=== PATIENT | female | born 1985 | race Hispanic/Latino ===

== ENCOUNTER 2020-08-29 14:08 | Emergency (ER) | payer MEDICARE ==
[~2020-08-29] VITALS: Ht 157.5 cm; Wt 117.9 kg
[2020-08-29 14:51] VITALS: BP 110/56
[2020-08-29 15:54] VITALS: BP 108/63
[2020-08-29 16:25] VITALS: BP 137/80
== END 2020-08-29 17:00 | disposition home or self-care (01) ==
LOC: EDH 14:08
DX: H11.32 Conjunctival hemorrhage, left eye (principal); E66.9 Obesity, unspecified; Z88.7 Allergy status to serum and vaccine; Z88.1 Allergy status to other antibiotic agents
CPT/HCPCS: 99281

== ENCOUNTER 2021-03-10 17:24 | Emergency (ER) | payer MEDICARE ==
[~2021-03-10] VITALS: Ht 157.5 cm; Wt 122.5 kg
[2021-03-10 18:12] LABS: ABG BASE EXCESS -1.5 mmol/L (-2.0-3.0); ABG HCO3 22.2 mmol/L (21.0-28.0); ABG OXYGEN SATURATION 97.3 % (95.0-99.0); ABG PCO2 35 mmHg (32-45)
[2021-03-10 18:37] LABS: BASOPHILS % (AUTO) 0.6 % (0.0-5.0); EOSINOPHILS % (AUTO) 1.9 % (0.0-8.0); HEMATOCRIT 40.8 % (36-48); LYMPHOCYTES % (AUTO) 14.3 % (21.0-51.0); MEAN CORPUSCULAR HEMOGLOBIN 29.6 pg (27.0-33.0); MEAN CORPUSCULAR HGB CONC 31.9 g/dL (32.0-36.0); MEAN CORPUSCULAR VOLUME 92.9 fL (79-99); MONOCYTES % (AUTO) 7.9 % (3.0-13.0); NEUTROPHILS % (AUTO) 74.6 % (40.0-77.0); PLATELET COUNT (AUTO) 182 K/uL (130-400); RED BLOOD CELL COUNT(AUTO) 4.39 MIL/uL (4.00-5.50); RED CELL DISTRIBUTION WIDTH 12.3 % (11.0-15.5); WHITE BLOOD COUNT (AUTO) 8.8 K/uL (4.8-10.8)
[2021-03-10 18:44] LABS: APPEARANCE,URINE Cloudy (CLEAR); BILIRUBIN,URINE Negative (NEGATIVE); COLOR,URINE Yellow (YELLOW); GLUCOSE, URINE (UA) Negative (NEGATIVE); KETONES,URINE Negative (NEGATIVE); LEUKOCYTE ESTERASE ,URINE Trace (NEGATIVE); NITRATE,URINE Negative (NEGATIVE); OCCULT BLOOD,URINE Negative (NEGATIVE); PROTEIN,URINE Negative (NEGATIVE)
[2021-03-10 18:48] LABS: CREATININE 0.7 mg/dL (0.5-1.5); POTASSIUM 4.6 mmol/L (3.5-5.1)
[2021-03-10 18:56] LABS: ALBUMIN 3.5 g/dL (3.5-5.0); BILIRUBIN,TOTAL 0.5 mg/dL (0.2-1.0); CRP QUANTITATIVE 2.1 mg/L (0.00-9.0); TOTAL PROTEIN, SERUM 6.9 g/dL (6.0-8.3)
[2021-03-10 18:57] LABS: HCG,QUAL RESULT NEGATIVE (NEGATIVE)
[2021-03-10 19:13] LABS: B-TYPE NATRIURETIC PEPTIDE 16 pg/mL (0-100)
[2021-03-10 19:18] LABS: BACTERIA,URINE Few /HPF (None Seen); MUCUS,URINE Few LPF (None Seen); RBC,URINE 0-1 /HPF (0-1); SQUAMOUS EPITHELIAL CELL,UR Moderate /HPF (0-2)
[2021-03-10 19:49] LABS: ERYTHROCYTE SEDIMENTATION RATE 4 MM/HR (0-20)
[2021-03-10 20:48] VITALS: BP 115/64
== END 2021-03-10 20:52 | disposition home or self-care (01) ==
LOC: EDH 17:24
DX: F41.9 Anxiety disorder, unspecified (principal); R00.2 Palpitations; R53.1 Weakness; R60.0 Localized edema; J44.9 Chronic obstructive pulmonary disease, unspecified; M32.9 Systemic lupus erythematosus, unspecified; F32.A Depression, unspecified; E66.9 Obesity, unspecified; Z68.42 Body mass index [BMI] 45.0-49.9, adult; Z88.1 Allergy status to other antibiotic agents; Z90.49 Acquired absence of other specified parts of digestive tract
CPT/HCPCS: 36415; 36600; 71045; 80053; 81001; 81025; 82550; 82803; 83735; 83880; 84484; 85025; 85651; 86140; 93005

== ENCOUNTER → 2021-03-26 | Emergency (ER) | payer MEDICARE ==
[~2021-03-26] VITALS: Ht 157.5 cm; Wt 118.8 kg
[2021-03-26 13:58] VITALS: BP 142/93
== END ==
LOC: EDH 13:55
DX: R11.0 Nausea (principal); Z53.21 Procedure and treatment not carried out due to patient leaving prior to being seen by health care provider
CPT/HCPCS: 87635; 87804 ×2; C9803

== ENCOUNTER 2021-04-22 17:34 | Emergency (ER) | payer MEDICARE ==
[~2021-04-22] VITALS: Ht 157.5 cm; Wt 114.8 kg
[2021-04-22] MEDS ORDERED: ALBUTEROL INHALER 90MCG/INH IH PRN (18:00)
[2021-04-22 18:24] LABS: BASOPHILS % (AUTO) 0.6 % (0.0-5.0); EOSINOPHILS % (AUTO) 2.5 % (0.0-8.0); HEMATOCRIT 40.5 % (36-48); LYMPHOCYTES % (AUTO) 19.9 % (21.0-51.0); MEAN CORPUSCULAR HEMOGLOBIN 30.4 pg (27.0-33.0); MEAN CORPUSCULAR HGB CONC 33.8 g/dL (32.0-36.0); MEAN CORPUSCULAR VOLUME 89.8 fL (79-99); MONOCYTES % (AUTO) 10.6 % (3.0-13.0); NEUTROPHILS % (AUTO) 64.8 % (40.0-77.0); PLATELET COUNT (AUTO) 174 K/uL (130-400); RED BLOOD CELL COUNT(AUTO) 4.51 MIL/uL (4.00-5.50); RED CELL DISTRIBUTION WIDTH 12.2 % (11.0-15.5); WHITE BLOOD COUNT (AUTO) 7.9 K/uL (4.8-10.8)
[2021-04-22 18:39] LABS: CREATININE 0.7 mg/dL (0.5-1.5); POTASSIUM 3.4 mmol/L (3.5-5.1)
[2021-04-22 18:48] LABS: ALBUMIN 3.6 g/dL (3.5-5.0); BILIRUBIN,TOTAL 0.2 mg/dL (0.2-1.0); CRP QUANTITATIVE 18.4 mg/L (0.00-9.0); TOTAL PROTEIN, SERUM 7.1 g/dL (6.0-8.3)
[2021-04-22] MEDS ORDERED: ACETAMINOPHEN WITH CODEINE 1 TAB TAB PO ONE (19:00)
[2021-04-22] MEDS ORDERED: DEXAMETHASONE SOD PHOSPHATE 4 MG/ML 1ML VIAL IVP ONE (19:00)
[2021-04-22] MEDS ORDERED: 0.9%NACL 1000ML 1,000 ML IV ONE (19:00)
[2021-04-22] MEDS ORDERED: AMOX/CLAV 875/125MG TAB PO ONE (19:00)
[2021-04-22] MEDS ORDERED: AZITHROMYCIN 250 MG TABLET PO ONE (19:00)
[2021-04-22 19:10] LABS: ABG BASE EXCESS -0.7 mmol/L (-2.0-3.0); ABG HCO3 23.5 mmol/L (21.0-28.0); ABG OXYGEN SATURATION 95.6 % (95.0-99.0); ABG PCO2 38 mmHg (32-45)
[2021-04-22] MEDS ORDERED: NIRM1TAB PO (19:58)
[2021-04-22] MEDS ORDERED: PRED20TA3 PO (19:58)
[2021-04-22] MEDS ORDERED: AMOX-429 PO (19:58)
[2021-04-22] MEDS ORDERED: D-ME1POW16 PO (19:58)
[2021-04-22 20:20] VITALS: BP 116/67
== END 2021-04-22 20:27 | disposition home or self-care (01) ==
LOC: EDH 17:34
DX: U07.1 COVID-19 (principal); J06.9 Acute upper respiratory infection, unspecified; M32.9 Systemic lupus erythematosus, unspecified; M79.7 Fibromyalgia; E86.0 Dehydration; Z88.1 Allergy status to other antibiotic agents; Z79.52 Long term (current) use of systemic steroids; Z90.49 Acquired absence of other specified parts of digestive tract
CPT/HCPCS: 36415; 36600; 71045; 80053; 82803; 84484; 85025; 86140; 87635; 87804 ×2; 96361; 96374; 99284; C9803; J1100; J7030

== ENCOUNTER 2021-05-02 07:33 | Emergency (ER) | payer MEDICARE ==
[~2021-05-02] VITALS: Ht 157.5 cm; Wt 116.1 kg
[~2021-05-02 07:33] MED LIST: AMOX-429 PO; D-ME1POW16 PO; NIRM1TAB PO; PRED20TA3 PO
[2021-05-02 08:35] LABS: BASOPHILS % (AUTO) 0.6 % (0.0-5.0); EOSINOPHILS % (AUTO) 2.6 % (0.0-8.0); HEMATOCRIT 39.4 % (36-48); LYMPHOCYTES % (AUTO) 23.6 % (21.0-51.0); MEAN CORPUSCULAR HEMOGLOBIN 28.6 pg (27.0-33.0); MEAN CORPUSCULAR HGB CONC 31.5 g/dL (32.0-36.0); MONOCYTES % (AUTO) 8.5 % (3.0-13.0); NEUTROPHILS % (AUTO) 63.9 % (40.0-77.0); PLATELET COUNT (AUTO) 158 K/uL (130-400); RED BLOOD CELL COUNT(AUTO) 4.33 MIL/uL (4.00-5.50); RED CELL DISTRIBUTION WIDTH 12.5 % (11.0-15.5)
[2021-05-02 08:40] LABS: APPEARANCE,URINE CLOUDY (CLEAR); BILIRUBIN,URINE NEGATIVE (NEGATIVE); COLOR,URINE YELLOW (YELLOW); GLUCOSE, URINE (UA) NEGATIVE (NEGATIVE); KETONES,URINE NEGATIVE (NEGATIVE); LEUKOCYTE ESTERASE ,URINE SMALL (NEGATIVE); NITRATE,URINE NEGATIVE (NEGATIVE); OCCULT BLOOD,URINE LARGE (NEGATIVE); PROTEIN,URINE NEGATIVE (NEGATIVE); UROBILINOGEN,URINE 0.2 mg/dL (0.2-1.0)
[2021-05-02 08:43] LABS: CREATININE 0.6 mg/dL (0.5-1.5); POTASSIUM 3.9 mmol/L (3.5-5.1)
[2021-05-02 08:43] LABS: HCG,QUAL RESULT NEGATIVE (NEGATIVE)
[2021-05-02 08:47] LABS: ALBUMIN 3.4 g/dL (3.5-5.0); BILIRUBIN,TOTAL 0.5 mg/dL (0.2-1.0); TOTAL PROTEIN, SERUM 6.5 g/dL (6.0-8.3)
[2021-05-02 08:51] LABS: BACTERIA,URINE Rare /HPF (None Seen); RBC,URINE TNTC /HPF (0-1); SQUAMOUS EPITHELIAL CELL,UR Rare /HPF (0-2); WBC,URINE 0-1 /HPF (0-1)
[2021-05-02] MEDS ORDERED: MORPHINE 4 MG SYG IV ONE (10:00)
[2021-05-02] MEDS ORDERED: ONDANSETRON 4MG INJ IVP ONE (10:00)
[2021-05-02] MEDS ORDERED: 0.9%NACL 1000ML 1,000 ML IV ONE (10:00)
[2021-05-02] MEDS ORDERED: MORPHINE 4 MG SYG ONE (11:55)
[2021-05-02] MEDS ORDERED: MORPHINE 4 MG SYG IV SCH (12:00)
[2021-05-02] MEDS ORDERED: ACET1TAB27 PO (12:13)
[2021-05-02] MEDS ORDERED: MORPHINE 2 MG SYG IVP ONE (12:30)
[2021-05-02] MEDS ORDERED: KETOROLAC 15MG/ML VIAL (15MG/ML) IV ONE (12:30)
[2021-05-02 12:56] VITALS: BP 116/69
== END 2021-05-02 12:59 | disposition home or self-care (01) ==
LOC: EDH 07:33
DX: M79.10 Myalgia, unspecified site (principal); R74.8 Abnormal levels of other serum enzymes; E86.0 Dehydration; J44.9 Chronic obstructive pulmonary disease, unspecified; Z88.1 Allergy status to other antibiotic agents; Z88.4 Allergy status to anesthetic agent; Z90.49 Acquired absence of other specified parts of digestive tract; Z79.1 Long term (current) use of non-steroidal anti-inflammatories (NSAID); Z86.16 Personal history of COVID-19; Z79.52 Long term (current) use of systemic steroids
CPT/HCPCS: 36415; 80053; 81001; 81025; 82550; 85025; 96361; 96374; 96375; 96376; 99284; J1885; J2270 ×2; J2405; J7030

== ENCOUNTER 2021-08-18 12:44 | Emergency (ER) | payer MEDICARE ==
[~2021-08-18] VITALS: Ht 157.5 cm; Wt 119.7 kg
[~2021-08-18 12:44] MED LIST changes: +ACET1TAB97 PO
[2021-08-18] MEDS ORDERED: 0.9%NACL 1000ML 1,000 ML IV ONE (14:00)
[2021-08-18] MEDS ORDERED: ONDANSETRON 4MG INJ IVP ONE (14:00)
[2021-08-18] MEDS ORDERED: ACETAMINOPHEN 500 MG TABLET PO ONE (14:00)
[2021-08-18] MEDS ORDERED: MORPHINE 4 MG SYG IVP ONE (14:00)
[2021-08-18 14:34] LABS: BASOPHILS % (AUTO) 0.6 % (0.0-5.0); EOSINOPHILS % (AUTO) 2.9 % (0.0-8.0); HEMATOCRIT 42.5 % (36-48); LYMPHOCYTES % (AUTO) 22.7 % (21.0-51.0); MEAN CORPUSCULAR HEMOGLOBIN 27.8 pg (27.0-33.0); MEAN CORPUSCULAR HGB CONC 31.8 g/dL (32.0-36.0); MEAN CORPUSCULAR VOLUME 87.6 fL (79-99); MONOCYTES % (AUTO) 7.4 % (3.0-13.0); PLATELET COUNT (AUTO) 171 K/uL (130-400); RED BLOOD CELL COUNT(AUTO) 4.85 MIL/uL (4.00-5.50); RED CELL DISTRIBUTION WIDTH 12.5 % (11.0-15.5); WHITE BLOOD COUNT (AUTO) 7.9 K/uL (4.8-10.8)
[2021-08-18 15:04] LABS: CREATININE 0.7 mg/dL (0.5-1.5); POTASSIUM 3.8 mmol/L (3.5-5.1)
[2021-08-18 15:09] LABS: ALBUMIN 3.8 g/dL (3.5-5.0); BILIRUBIN,TOTAL 0.4 mg/dL (0.2-1.0); TOTAL PROTEIN, SERUM 6.6 g/dL (6.0-8.3)
[2021-08-18 16:08] VITALS: BP 118/74
== END 2021-08-18 16:16 | disposition home or self-care (01) ==
LOC: EDH 12:44
DX: M79.10 Myalgia, unspecified site (principal); R06.02 Shortness of breath; J44.9 Chronic obstructive pulmonary disease, unspecified; M19.90 Unspecified osteoarthritis, unspecified site; F32.A Depression, unspecified; Z88.7 Allergy status to serum and vaccine; Z88.3 Allergy status to other anti-infective agents; Z79.899 Other long term (current) drug therapy
CPT/HCPCS: 36415; 71045; 80053; 82550; 83605; 84484; 85025; 85651; 93005; 96374; 96375; 99285; J2270; J2405; J7030

== ENCOUNTER 2021-11-21 22:21 | Emergency (ER) | payer MEDICARE ==
[2021-11-21] MEDS ORDERED: KETOROLAC 60 MG VIAL (30MG/ML) IM ONE (22:44)
== END 2021-11-21 23:17 | disposition left against medical advice (07) ==
LOC: EDH 22:21
DX: M54.50 Low back pain, unspecified (principal); Z53.21 Procedure and treatment not carried out due to patient leaving prior to being seen by health care provider
CPT/HCPCS: J1885

== ENCOUNTER 2022-01-14 17:41 | Emergency (ER) | payer MEDICARE ==
[~2022-01-14] VITALS: Ht 157.5 cm; Wt 116.1 kg
[2022-01-14] MEDS ORDERED: ONDANSETRON 4MG TABLET PO ONE (18:00)
[2022-01-14] MEDS ORDERED: FAMOTIDINE 20MG TAB PO ONE (18:00)
[2022-01-14] MEDS ORDERED: DICYCLOMINE HCL 10 MG/5 ML ML PO ONE (18:00)
[2022-01-14] MEDS ORDERED: LIDOCAINE HCL 2% VISCOUS 15 ML UDCUP PO ONE (18:00)
[2022-01-14] MEDS ORDERED: MAG/ALUM/SIMETH 30 ML UDCUP PO ONE (18:00)
[2022-01-14 18:23] LABS: BASOPHILS % (AUTO) 0.7 % (0.0-5.0); HEMATOCRIT 38.6 % (36-48); LYMPHOCYTES % (AUTO) 27.1 % (21.0-51.0); MEAN CORPUSCULAR HGB CONC 33.7 g/dL (32.0-36.0); MONOCYTES % (AUTO) 8.4 % (3.0-13.0); NEUTROPHILS % (AUTO) 59.5 % (40.0-77.0); PLATELET COUNT (AUTO) 162 K/uL (130-400); RED BLOOD CELL COUNT(AUTO) 4.49 MIL/uL (4.00-5.50); RED CELL DISTRIBUTION WIDTH 12.4 % (11.0-15.5); WHITE BLOOD COUNT (AUTO) 7.1 K/uL (4.8-10.8)
[2022-01-14 18:45] LABS: ALANINE AMINOTRANSFERASE 46 U/L (12-78); ALBUMIN 3.6 g/dL (3.5-5.0); ASPARTATE AMINOTRANSFERASE 28 U/L (10-37); CARBON DIOXIDE 30 mmol/L (21-32); CHLORIDE 105 mmol/L (101-111); CREATININE 0.7 mg/dL (0.5-1.5); GLOMERULAR FILTR. RATE CALC 100 mL/min (>60); GLUCOSE,RANDOM 80 mg/dL (70-105); LIPASE 52 U/L (114-286); SODIUM SERUM 138 mmol/L (136-145); TOTAL PROTEIN, SERUM 6.9 g/dL (6.0-8.3); UREA NITROGEN, BLOOD 13 mg/dL (7-18)
[2022-01-14 18:46] VITALS: BP 104/51
[2022-01-14 18:50] LABS: CRP QUANTITATIVE < 2.00 mg/L (0.00-9.0)
[2022-01-14] MEDS ORDERED: POTASSIUM BICARB/CIT AC 25 MEQ TABLET.EFF PO ONE (19:00)
[2022-01-14] MEDS ORDERED: POTA-187 PO (19:11)
[2022-01-15] MEDS ORDERED: DIPH1TAB PO (15:17)
[2022-01-15] MEDS ORDERED: ONDA-104 PO (15:17)
[2022-01-15] MEDS ORDERED: PRED20TA3 PO (15:17)
== END 2022-01-14 19:41 | disposition home or self-care (01) ==
LOC: EDH 17:41
DX: E87.6 Hypokalemia (principal); M79.7 Fibromyalgia; E66.01 Morbid (severe) obesity due to excess calories; M19.90 Unspecified osteoarthritis, unspecified site; J44.9 Chronic obstructive pulmonary disease, unspecified; Z79.52 Long term (current) use of systemic steroids; Z88.1 Allergy status to other antibiotic agents; Z88.7 Allergy status to serum and vaccine; Z90.49 Acquired absence of other specified parts of digestive tract; Z68.42 Body mass index [BMI] 45.0-49.9, adult
CPT/HCPCS: 99285; 71045; 84484; 80053; 84703; 83690; 85025; 86140; 36415; 93005; Q0162

== ENCOUNTER 2022-01-15 12:01 | Emergency (ER) | payer MEDICARE ==
[~2022-01-15] VITALS: Ht 157.5 cm; Wt 116.1 kg
[~2022-01-15 12:01] MED LIST changes: +POTA-187 PO
[2022-01-15 13:16] LABS: BASOPHILS % (AUTO) 0.6 % (0.0-5.0); EOSINOPHILS % (AUTO) 2.2 % (0.0-8.0); HEMATOCRIT 39.3 % (36-48); LYMPHOCYTES % (AUTO) 29.4 % (21.0-51.0); MEAN CORPUSCULAR HEMOGLOBIN 28.5 pg (27.0-33.0); MEAN CORPUSCULAR HGB CONC 33.3 g/dL (32.0-36.0); MEAN CORPUSCULAR VOLUME 85.6 fL (79-99); NEUTROPHILS % (AUTO) 60.5 % (40.0-77.0); PLATELET COUNT (AUTO) 145 K/uL (130-400); RED BLOOD CELL COUNT(AUTO) 4.59 MIL/uL (4.00-5.50); RED CELL DISTRIBUTION WIDTH 12.5 % (11.0-15.5); WHITE BLOOD COUNT (AUTO) 6.8 K/uL (4.8-10.8)
[2022-01-15 13:20] LABS: APPEARANCE,URINE CLEAR (CLEAR); BILIRUBIN,URINE NEGATIVE (NEGATIVE); COLOR,URINE LIGHT-YELLOW (YELLOW); GLUCOSE, URINE (UA) NEGATIVE (NEGATIVE); KETONES,URINE NEGATIVE (NEGATIVE); LEUKOCYTE ESTERASE ,URINE NEGATIVE Leu/uL (NEGATIVE); NITRATE,URINE NEGATIVE (NEGATIVE); OCCULT BLOOD,URINE MODERATE (NEGATIVE); PH,URINE 6.5 (5.0-8.0); PROTEIN,URINE NEGATIVE (NEGATIVE); UROBILINOGEN,URINE 0.2 mg/dL (0.2-1.0)
[2022-01-15 13:32] LABS: MUCUS,URINE RARE LPF (None Seen); SQUAMOUS EPITHELIAL CELL,UR RARE /HPF (0-2); WBC,URINE 0-1 /HPF (0-1)
[2022-01-15] MEDS ORDERED: ONDANSETRON 4MG INJ ONE (13:58)
[2022-01-15] MEDS ORDERED: ONDANSETRON 4MG INJ IVP ONE (14:00)
[2022-01-15] MEDS ORDERED: DEXAMETHASONE SOD PHOSPHATE 4 MG/ML 1ML VIAL IV ONE (14:00)
[2022-01-15 14:03] LABS: ALBUMIN 3.6 g/dL (3.5-5.0); CREATININE 0.6 mg/dL (0.5-1.5); MAGNESIUM 1.8 mg/dL (1.80-2.40); POTASSIUM 3.7 mmol/L (3.5-5.1); TOTAL PROTEIN, SERUM 6.9 g/dL (6.0-8.3)
[2022-01-15] MEDS ORDERED: PRED20TA3 PO (15:17)
[2022-01-15] MEDS ORDERED: DIPH1TAB PO (15:17)
[2022-01-15] MEDS ORDERED: ONDA-104 PO (15:17)
[2022-01-15 15:20] VITALS: BP 115/71
== END 2022-01-15 15:32 | disposition home or self-care (01) ==
LOC: EDH 12:01
DX: E27.2 Addisonian crisis (principal); M19.90 Unspecified osteoarthritis, unspecified site; J45.909 Unspecified asthma, uncomplicated; F32.A Depression, unspecified; Z90.89 Acquired absence of other organs; Z90.49 Acquired absence of other specified parts of digestive tract; Z79.899 Other long term (current) drug therapy; Z88.1 Allergy status to other antibiotic agents; Z88.7 Allergy status to serum and vaccine
CPT/HCPCS: 99284; 96374; 96375; 82550; 83735; 80053; 85025; 83605; 81001; 36415; J1100; J2405